=== PATIENT | male | born 1980 | race Caucasian/White ===

== ENCOUNTER → 2020-02-02 15:48 | Outpatient (REF) | payer OTHER, SELFPAY | LOC: ANHLAB 15:48 | PROVIDERS: PCP Family Medicine; Visit Provider Nurse Practitioner Family | DX: L72.0 Epidermal cyst (principal) | CPT/HCPCS: 88304 ==

== ENCOUNTER → 2021-09-05 10:54 | Outpatient (CLI) | payer OTHER, SELFPAY ==
--- NOTE | ~2021-09-05 | XR_ITS ---
EXAMINATION: XR barium swallow DATE: 09/05/2021 12:38 CDT INDICATION: Difficulty swallowing. TECHNIQUE: Thick barium contrast with gas effervescent crystals were administered orally. Fluoroscop ic images of the esophagus were obtained in various projections. The hypopharynx was also examined. T hereafter, overhead images of the thoracic esophagrus were performed. Fluroscopy time 0.5 minutesDap 5.28. 80 images. FINDINGS: The esophagus is normal in caliber, without mucosal lesions or strictures. There is a small Zenker's diverticulum. There is normal esophageal peristalsis. There is no hiatal hernia. No discre et episode of gastroesophageal reflux is seen during the course of this study. IMPRESSION: 1. Small Zenker's diverticulum. Reviewed, dictated and finalized at location B.
== END ==
PROVIDERS: PCP Family Medicine; Visit Provider Family Medicine
DX: R13.10 Dysphagia, unspecified (principal); K22.5 Diverticulum of esophagus, acquired
CPT/HCPCS: 74220

== ENCOUNTER 2022-09-03 18:22 | Observation (INO) | payer OTHER, SELFPAY ==
[2022-09-03] VITALS (10 sets, daily range): BP systolic 146–177; BP diastolic 85–91; PULSE 55–72; RESP 16–20; TEMP 37; O2SAT 93–100
--- NOTE | ~2022-09-03 | CT_ITS ---
EXAMINATION: CT abdomen pelvis w con DATE: 09/03/2022 22:37 INDICATION: RLQ pain TECHNIQUE: Computed tomography (CT) of the abdomen and pelvis was performed with 100 mL Omnipaque-350 intravenous contrast. Automated exposure control and iterative reconstruction technique were employe d. The dose-length product was 1117.65 mGy-cm. COMPARISON: None. FINDINGS: Lower thorax: Unremarkable Liver: Normal. Biliary/Gallbladder: Gallbladder is normal. No bile duct dilation. Pancreas: No mass or duct dilation. Spleen: Normal. Adrenals:No mass. Kidneys: No mass, stone, or hydronephrosis. GI tract: No small or large bowel dilation. Dilated appendix with an intact wall. Appendicolith in th e proximal appendix. Surrounding inflammatory change and fluid. No evidence of abscess or perforation . Inflammatory changes involve the adjacent terminal ileum and cecal wall. Mesentery/Peritoneum: No ascites, mass, or free air. Prominent lymph nodes in the small bowel mesente ry with surrounding fat halos and teresita mesentery. Retroperitoneum: No mass. Pelvis: Pelvic organs are within normal limits. Soft Tissues: Soft tissues and body wall unremarkable. Bones: No acute osseous finding. IMPRESSION: Acute uncomplicated appendicitis, with reactive adjacent terminal ileitis. Mesenteric panniculitis, l ikely an incidental finding and typically a self-limiting condition. Reviewed, dictated and finalized at location K. IMPRESSION: Acute uncomplicated appendicitis, with reactive adjacent terminal ileitis. Mese nteric panniculitis, likely an incidental finding and typically a self-limiting condition.
[2022-09-03 20:35] LABS: Basophils Percent Auto 0.2 % (0.2-1.2); Hematocrit 49.3 % (42.0-52.0); Hemoglobin 17.1 g/dL (14.0-18.0); Immature Granulocyte Absolute 0.16 K/mm3 (0.00-0.031); Immature Granulocyte Percent A 0.7 % (0-0.5); Lymphocytes Absolute Auto 1.72 K/mm3 (0.9-3.2); Lymphocytes Percent Auto 7.5 % (18.3-44.2); Mean Corpuscular HGB Conc 34.7 g/dl (32-36); Mean Corpuscular Hemoglobin 28.9 pg (26-34); Mean Corpuscular Volume 83.3 fl (80-100); Mean Platelet Volume 10.3 fl (7.4-10.4); Monocytes Percent Auto 4.5 % (2.6-8.5); Neutrophils Absolute Auto 19.9 K/mm3 (1.3-6.7); Neutrophils Percent Auto 87.1 % (45.5-73.1); Platelet Count Result 227 k/mm3 (150-375); Red Blood Count 5.92 M/mm3 (4.6-6.20); Red Cell Distribution Width 12.6 % (11.5-14.5); White Blood Count 22.8 K/mm3 (4.5-10.0)
[2022-09-03 20:53] LABS: Alanine Aminotransferase 28 U/L (6-50); Albumin Level 5.1 g/dL (3.5-5.1); Alkaline Phosphatase 63 U/L (38-126); Anion Gap 8 mmol/L (8-16); Aspartate Amino Transferase 23 U/L (17-59); Bilirubin,Total 0.8 mg/dL (0.2-1.3); Blood Urea Nitrogen 12 mg/dL (9-20); Calcium 9.3 mg/dL (8.4-10.2); Carbon Dioxide 32 mmol/L (22-30); Chloride 99 mmol/L (98-107); Estimated CRCL calculation 141 ml/min; Estimated Glomerular Filt Rate > 60; Glucose 135 mg/dL (65-110); Lipase 48 U/L (23-300); Potassium 4.2 mmol/L (3.4-5.0); Sodium 139 mmol/L (137-145)
[2022-09-03 22:48] LABS: Appearance Urine Clear (Clear); Bacteria Urine None Seen /hpf; Bilirubin Urine Negative (Negative); Blood Urine Negative (Negative); Color Urine Dark Yellow (Yellow); Glucose Urine UA Negative (Negative); Ketones Urine 1+ mg/dL (Negative); Leukocyte Esterase Ur Negative LEU/UL (Negative); Mucus Urine Present /lpf; Nitrate Urine Negative (Negative); Protein Urine 2+ mg/dL (Negative); RBC Urine 0-2 /hpf (0-2); Specific Grav Ur 1.025 (1.001-1.035); Squamous Epithelial Cell Urine None seen /hpf (Few); Urobilinogen Urine 0.2 mg/dL (<2.0); WBC Urine 0-5 /hpf; pH Urine 5.5 (5.0-9.0)
[2022-09-03 22:50] LABS: Add Urine Microscopic? YES
--- NOTE | 2022-09-03 22:54 | PC.NURSE ---
Pt report given to CRYSTAL Dumont.
--- NOTE | 2022-09-03 23:17 | ED.ABDPAIN ---
HPI - Abdominal Pain General Chief Complaint: Abdominal Pain <RHETT Goddard Last Filed: 09/04/22 03:39> Stated Complaint: Abdominal pain <RHETT Goddard Last Filed: 09/04/22 03:39> Time Seen by Provider: 09/03/22 23:04 <RHETT Goddard Last Filed: 09/04/22 03:39> History of Present Illness HPI narrative: 42-year-old male reports for abdominal pain x2 days. Patient reports the pain worsened significantly today. He describes the pain as periumbilical and right lower quadrant. Reports nausea and 2 episodes of vomiting today, nonbloody and nonbilious. Denies known fever, however reports body aches and chills today. Reports anorexia today. Denies urinary complaints, back pain, headache, vision changes, chest pain, shortness of breath, diarrhea, melena, hematochezia. <RHETT Goddard Last Filed: 09/04/22 03:39> Related Data Home Medications: Home Medications Medication Instructions Recorded Confirmed atorvastatin 20 mg tablet 20 mg PO DAILY 10/16/21 09/04/22 <RHETT Goddard Last Filed: 09/04/22 03:39> Allergies/Adverse Reactions: Allergies Allergy/AdvReac Type Severity Reaction Status Date / Time No Known Allergies Allergy Mild Verified 09/04/22 02:18 <RHETT Goddard Last Filed: 09/04/22 03:39> Review of Systems Review of Systems: CONSTITUTIONAL: Denies fever EYES: Denies visual changes, redness, or discharge. ENT: Denies rhinorrhea, congestion, sore throat, or otalgia. CARDIOVASCULAR: Denies chest pain, palpitations, or edema. RESPIRATORY: Denies cough or dyspnea. GASTROINTESTINAL: See HPI GENITOURINARY: Denies dysuria or hematuria. SKIN: Denies rash or itching. MUSCULOSKELETAL: Denies back pain, joint pain, or myalgia. NEUROLOGIC: Denies headache, numbness, dizziness, or weakness. PSYCHIATRIC: Denies anxiety or depression. <RHETT Goddard Last Filed: 09/04/22 03:39> PMFSH Past Medical History Medical History: Medical History History of fracture of nasal bone Hyperlipidemia <Sisi Galo PA-C - Last Filed: 09/04/22 03:39> Surgical History Surgical History: Surgical History History of nasal surgery <Sisi Galo PA-C - Last Filed: 09/04/22 03:39> Family History Family History: Family History Other No significant family history <RHETT Goddard Last Filed: 09/04/22 03:39> Social History Social History: Social History Smoking status: Former smoker Tobacco type: cigarettes Second hand tobacco smoke exposure: No Additional smoking assessment comments: age 13 - 30 ppd 1 1/2 per day Alcohol intake: current Drinks per week: 1 Substance use: never Lack of Transportation: No Lack of Food: Never True Current Housing: I Have Housing Concerned About Future Housing: No Difficulty Paying Gas/Electric Bills: No Difficulty Paying for Meds: No Currently Unemployed: No Education: High School Diploma/GED Difficulty w/ Childcare or Family Care: No Living arrangements: with family Spiritual care concerns: No <Sisi Galo PA-C - Last Filed: 09/04/22 03:39> Exam Narrative: GENERAL: Well-appearing, well-nourished, and in no acute distress. Patient resting comfortably on the bed. HEAD: Normocephalic, atraumatic. EYES: PERRLA and EOMI. ENT: Nares clear, no rhinorrhea or epistaxis. Mucous membranes moist. Oropharynx without tonsillar hypertrophy exudate or other lesions. NECK: Supple. No adenopathy or masses. CHEST: Clear to auscultation. No respiratory distress. No wheezes rales or rhonchi HEART: Regular rate and rhythm. No murmur heard. Normal peripheral pulses. ABDOMEN: Soft, nondistended, no
[2022-09-03] MEDS: SODIUM CHLORIDE 0.9% IV 1,000 ML 999 ML IV CONT (23:22)
[2022-09-03] MEDS: ONDANSETRON INJ 4 MG/2 ML VIAL IV PUSH (23:23)
[2022-09-03] MEDS: MORPHINE SULFATE (*CRX) 4 MG/ML INJ IV PUSH (23:23)
[2022-09-03] MEDS: metroNIDAZOLE 500 MG/ISO 100ML 500 MG/100 ML BAG 100 MG IVPB (23:26)
--- NOTE | 2022-09-03 23:44 | PC.NURSE ---
Per shannan Chun to start antibiotics without blood cultures.
[2022-09-04] VITALS (28 sets, daily range): BP systolic 113–162; BP diastolic 62–95; PULSE 62–92; RESP 11–18; TEMP 36.4–38.4; O2SAT 94–100; BMI 36.3
[2022-09-04] MEDS: SODIUM CHLORIDE 0.9% IV 1,000 ML 125 ML IV CONT (02:13)
[2022-09-04] MEDS: MORPHINE SULFATE (*CRX) 4 MG/ML INJ IV PUSH ×3 (02:13→10:14)
--- NOTE | 2022-09-04 02:24 | ADMGEN ---
This patient, Andre Delgado, was admitted to [facility] S[facility] Room 306-02. Patient/family oriented to hospital policies and general routines including ID bracelet, bed and alarms, visiting hours, pain management, procedures, bathroom and other care routines, personal items, smoking policy, room service/diet, and visiting hours. Information on how to activate the Rapid Response Team has been discussed. Patient/Family are encouraged to report perceived risks to care and to ask questions if they do not understand what they are told or what they should do.
[2022-09-04] MEDS: metroNIDAZOLE 500 MG/ISO 100ML 500 MG/100 ML BAG 100 MG IVPB ×2 (06:49→14:01)
--- NOTE | 2022-09-04 10:13 | PM.IMHP ---
H&P: HPI History of Present Illness Date/Time: 09/04/22 10:13 Chief Complaint: RLQ abdominal pain Narrative: This is a 42-year-old man with a history of hyperlipidemia, who presented to the ER with a 2-day history of abdominal pain. He reports eating a large meal Friday night, 3 days ago, and shortly after eating noticing some periumbilical abdominal pain. He associated this to eating too much and went to bed that night. His abdominal pain continued into Friday and was constant the entire day. It was initially mild, but started to become more severe yesterday. He began to have more localized pain in the RLQ. No alleviating factors. Movement and bending are aggravating factors. No fever or chills. He had associated nausea and two episodes of vomiting yesterday at home. Due to his persistent abdominal pain, he presented to the ER last night. Labs were significant for a WBC count of 22,800. CT scan of the abdomen and pelvis showed acute uncomplicated appendicitis with reactive adjacent terminal ileitis. Also incidentally noted was mesenteric panniculitis. Appendicolith was seen in the proximal appendix. No obvious evidence of perforation or abscess. Our service was contacted by the ED physician and he was started on IV ceftriaxone and metronidazole. He was admitted in this setting for surgical evaluation. He is seen on the medical floor and reports his pain has become more localized in the RLQ since admission. He denies any nausea this morning. No previous abdominal surgeries. No other complaints at this time. Review of Systems Review of Systems: All systems reviewed & are unremarkable except as noted in HPI and below Constitutional: Constitutional: Reports no additional constitutional complaints, Denies chills, Denies fatigue and Denies fever(s) Eyes: Eyes: Reports no additional eye complaints ENT: Reports system reviewed and no additional complaints, except as documented and Denies dizziness Cardiovascular: Cardiovascular: Reports no additional cardiovascular complaints, Denies chest pain and Denies leg edema Respiratory: Respiratory: Reports no additional respiratory complaints, Denies cough and Denies dyspnea Gastrointestinal: Gastrointestinal: Reports as per HPI, Reports no additional gastrointestinal complaints, Reports abdominal pain, Denies bloating, Denies change in bowel habits, Denies change in stool character, Denies coffee ground emesis, Denies constipation, Denies diarrhea, Reports nausea, Reports vomiting and Denies hematemesis Genitourinary: Genitourinary: Reports no additional male genitourinary complaints and Denies dysuria Musculoskeletal: Musculoskeletal: Reports no additional musculoskeletal complaints, Denies abnormal gait and Denies joint swelling Integumentary/Breasts: Skin/Breast: Reports system reviewed and no additional complaints, except as docu Neurologic: Reports system reviewed and no additional complaints, except as documented, Denies headache(s), Denies focal weakness, Denies numbness and Denies tingling Endocrine: Endocrine: Denies fatigue PMFSH Past Medical History Medical History History of fracture of nasal bone Hyperlipidemia Surgical History Surgical History History of nasal surgery Family History Family History Other No significant family history Social History Social History Smoking status: Former smoker Tobacco type: cigarettes Second hand tobacco smoke exposure: No Additional smoking assessment comments: age 13 - 30 ppd 1 1/2 per day Alcohol intake: current Drinks per week: 1 Substance use: never Lack of Transportation: No Lack of Food: Never True Current Housing: I Have Housing Concerned About Future Housing: No Difficulty Paying Gas/Electric B
--- NOTE | 2022-09-04 12:38 | PC.NURSE ---
To OR per shawna, IV #20 RT AC - SL. Report given to Carol. THAKKAR and 1400 dose Flagyl on chart. at bedside.
--- NOTE | 2022-09-04 13:12 | WPDANESEPPF ---
Anes - Initial Pre Proc Eval Procedure: Operation Date: 09/04/22 14:00 Proposed Procedures p Laparoscopic Appendectomy - Lai Lepe DO Date/Time: 09/04/22 13:12 Surgeon: Lai Lepe DO Pre Op Diagnosis: Appendicitis Patient Data Age: 42 Gender: M Height: 1.73 m Weight: 108.6 kg Last Vital Signs Temp 101.1 F H 09/04/22 12:43 Pulse 92 09/04/22 12:43 Resp 16 09/04/22 12:43 BP 147/74 H 09/04/22 12:43 Pulse Ox 98 09/04/22 12:43 O2 Del Method Room Air 09/04/22 12:43 Allergies Allergy/AdvReac Type Severity Reaction Status Date / Time No Known Allergies Allergy Mild Verified 09/04/22 02:18 Home Medications Medication Instructions Recorded Confirmed Type atorvastatin 20 mg tablet 20 mg PO DAILY 10/16/21 09/04/22 History Laboratory Tests 09/03/22 09/03/22 09/03/22 20:03 20:03 22:29 WBC 22.8 K/mm3 H K/mm3 (4.5-10.0) RBC 5.92 M/mm3 M/mm3 (4.6-6.20) Hgb 17.1 g/dL g/dL (14.0-18.0) Hct 49.3 % % (42.0-52.0) MCV 83.3 fl fl (80-100) MCH 28.9 pg pg (26-34) MCHC 34.7 g/dl g/dl (32-36) RDW 12.6 % % (11.5-14.5) Plt Count 227 k/mm3 k/mm3 (150-375) MPV 10.3 fl fl (7.4-10.4) Immature Gran % (Auto) 0.7 % H % (0-0.5) Neut % (Auto) 87.1 % H % (45.5-73.1) Lymph % (Auto) 7.5 % L % (18.3-44.2) [place] % (Auto) 4.5 % % (2.6-8.5) Eos % (Auto) 0.0 % % (0-4.4) Baso % (Auto) 0.2 % % (0.2-1.2) Lymph # (Auto) 1.72 K/mm3 K/mm3 (0.9-3.2) [place] # (Auto) 1.0 K/mm3 H K/mm3 (0.1-0.6) Eos # (Auto) 0.0 K/mm3 K/mm3 (0-0.3) Baso # (Auto) 0.0 K/mm3 K/mm3 (0.0-0.1) Abs Immat Gran (auto) 0.16 K/mm3 H K/mm3 (0.00-0.031) Absolute Neuts (auto) 19.9 K/mm3 H K/mm3 (1.3-6.7) Absolute Nucleated RBC 0.0 K/mm3 K/mm3 (0.0-0.012) Nucleated RBC % 0.0 % % (0.0-0.2) Sodium 139 mmol/L mmol/L (137-145) Potassium 4.2 mmol/L mmol/L (3.4-5.0) Chloride 99 mmol/L mmol/L (98-107) Carbon Dioxide 32 mmol/L H mmol/L (22-30) Anion Gap 8 mmol/L mmol/L (8-16) BUN 12 mg/dL mg/dL (9-20) Creatinine 0.70 mg/dL mg/dL (0.7-1.3) Estim Creat Clear Calc 141 ml/min ml/min Estimated GFR > 60 (59 - ) Glucose 135 mg/dL H mg/dL (65-110) Calcium 9.3 mg/dL mg/dL (8.4-10.2) Total Bilirubin 0.8 mg/dL mg/dL (0.2-1.3) AST 23 U/L U/L (17-59) ALT 28 U/L U/L (6-50) Alkaline Phosphatase 63 U/L U/L (38-126) Total Protein 9.0 g/dL H g/dL (6.3-8.2) Albumin 5.1 g/dL g/dL (3.5-5.1) Lipase 48 U/L U/L (23-300) Urine Color Dark yellow (Yellow) Urine Appearance Clear (Clear) Urine pH 5.5 (5.0-9.0) Ur Specific [place] 1.025 (1.001-1.035) Urine Protein 2+ mg/dL H mg/dL (Negative) Urine Glucose (UA) Negative mg/dL mg/dL (Negative) Urine Ketones 1+ mg/dL H mg/dL (Negative) Ur Blood (Man) Negative (Negative) Urine Nitrate Negative (Negative) Urine Bilirubin Negative (Negative) Urine Urobilinogen 0.2 mg/dL mg/dL (<2.0) Leukocyte Esterase Rfl Negative ANDREA/UL ANDREA/UL (Negative) Urine RBC 0-2 /hpf /hpf (0-2) Urine WBC 0-5 /hpf /hpf Ur Squamous Epith Cells None seen /hpf /hpf (Few) Urine Bacteria None seen /hpf /hpf Urine Casts 3-5 Urine Mucus Present /lpf /lpf Patient hx anesthesia problems: none Family hx anesthesia problems: none Results Review: All pre-operative results and documents have been reviewed as part of the pre-operative evaluation. PMFSH Past Me
[2022-09-04] MEDS: KETOROLAC 15 MG/ML VIAL (*BKC) IV PUSH (13:14)
[2022-09-04] MEDS: LACTATED RINGERS 1,000 ML 30 ML IV CONT (13:15)
--- NOTE | 2022-09-04 13:53 | WPDHPUPDATE1 ---
History and Physical Update Update Date/Time: 09/04/22 13:53 History and Physical has been reviewed, including an updated exam of the patient. There are NO changes in the patient's condition. Risks, benefits, and alternatives have been discussed and questions answered. Patient agrees to proceed with procedure.
[2022-09-04] MEDS: ACETAMINOPHEN 500 MG TABLET 1000 MG PO (14:00)
[2022-09-04] MEDS: ceFAZolin 2 GM/D5W 50 ML 2 GM/50 ML BAG IVPB (14:05)
[2022-09-04] MEDS: BUPIVACAINE/EPINEPHRINE 0.25% 50 ML VIAL 30 ML INFILTRATE (14:21)
--- NOTE | 2022-09-04 15:08 | W.PM.PROC2 ---
Procedure Note - Detailed Date of Procedure 09/04/22 Pre-op Diagnosis Appendicitis Post-op Diagnosis Other (Acute perforated appendicitis) Procedure Performed Laparoscopic appendectomy Surgeon Lai Lepe DO Anesthesia General and Local (0.5% bupivicaine with epinephrine) Indications This is a 42-year-old man who presented with right lower quadrant pain that started 3 days ago. He began experiencing fevers last night and this morning. He presented to the emergency department over night and was noted to have a high white blood count and CT findings suggestive of acute appendicitis. He was started on broad-spectrum IV antibiotics and was admitted for further treatment. Discussions were made with the patient about treatment options and decision was made to proceed with laparoscopic appendectomy, possible open. Findings Laparoscopic appendectomy was performed. The appendix appeared dilated and inflamed. As I dissected down towards the base of the appendix, I did identify an area of necrosis and perforation. There was some purulence fluid that was draining from this location. All of the purulence appeared to be contained between the appendix and mesoappendix. There did not appear to be any distant spread of infection or any distant abscess. The base of the appendix appeared healthy and viable. The appendix was removed and sent to the lab for pathology. The abdominal cavity was then irrigated with 1 L of sterile saline. Description of Procedure Procedure as well as risks, benefits, and alternatives were explained to the patient. The patient agreed to proceed. Written consent was obtained and placed in chart prior to procedure. The patient was brought back to surgical suite. He was placed supine on operating table. Time-out was done to confirm the patient and procedure. The patient was then intubated by the Anesthesia Department. His abdomen was prepped and draped in sterile fashion using chlorhexidine prep. A 5 mm incision was made just to the left of the patient's umbilicus and a 5 mm Optiview trocar was advanced through the abdominal layers under direct visualization. Once inside the peritoneal cavity, carbon dioxide insufflation was used to create a pneumoperitoneum. The camera was inserted and the abdomen was inspected. No immediate abnormalities were identified. The patient was then placed in slight Trendelenburg position and rotated to the left. A 5 mm incision was made in the suprapubic region in midline and a 5 mm trocar was inserted under direct visualization. A 12 mm incision was made in the left lower quadrant and a 12 mm trocar was inserted under direct visualization. The right lower quadrant was carefully inspected. The cecum was identified and then this was traced back to the appendix. The appendix was identified and grasped at the mesoappendix and lifted anteriorly. Careful blunt dissection was carried out at the base of the appendix through the mesoappendix using a [place] grasper. An Endo-JSOE 45 mm blue load stapler was then advanced across the base of the appendix and clamped and fired. A white reload was then clamped across the mesoappendix and fired. This freed up our appendix completely. It was then placed in an EndoCatch bag and removed through the left lower quadrant port. The staple lines were then inspected. Hemostasis appeared adequate and the staple lines appeared secure. The area was then irrigated with sterile saline. The pelvis was then carefully inspected and irrigated with sterile saline as well and the remainder of the abdomen was carefully inspected. The patient was then flattened out in bed. One final inspection was made around the abdominal cavity and no other abnormalities were seen. The left lower quadrant port was removed and a José Miguel-Rayshawn cone was used to approximate the fascia with an 0 Vicryl simple interrupted suture. The remaining ports were then removed under direct visualization. The
[2022-09-04] MEDS: fentaNYL CITRATE INJ (*CRX) 100 MCG/2 ML VIAL 25 MCG IV PUSH ×2 (15:33→15:35)
[2022-09-04] MEDS: PIPERACILLN/TAZ 3.375GM/NS50ML 3.375 GM/50 ML BAG IVPB (17:53)
[2022-09-04] MEDS: IBUPROFEN 600 MG TABLET PO (22:20)
[2022-09-05] MEDS: PIPERACILLN/TAZ 3.375GM/NS50ML 3.375 GM/50 ML BAG IVPB ×4 (00:02→17:50)
[2022-09-05 04:33] VITALS: BP 125/71; PULSE 75; RESP 16; TEMP 36.3; O2SAT 97
[2022-09-05] MEDS: IBUPROFEN 600 MG TABLET PO ×2 (06:28→17:49)
[2022-09-05 06:50] LABS: Hematocrit 42.6 % (42.0-52.0); Hemoglobin 14.7 g/dL (14.0-18.0); Mean Corpuscular HGB Conc 34.5 g/dl (32-36); Mean Corpuscular Hemoglobin 28.7 pg (26-34); Mean Corpuscular Volume 83.2 fl (80-100); Platelet Count Result 168 k/mm3 (150-375); Red Blood Count 5.12 M/mm3 (4.6-6.20); Red Cell Distribution Width 12.7 % (11.5-14.5); White Blood Count 23.7 K/mm3 (4.5-10.0)
[2022-09-05 07:14] LABS: Anion Gap 6 mmol/L (8-16); Blood Urea Nitrogen 19 mg/dL (9-20); Calcium 8.3 mg/dL (8.4-10.2); Carbon Dioxide 30 mmol/L (22-30); Chloride 100 mmol/L (98-107); Estimated CRCL calculation 125 ml/min; Estimated Glomerular Filt Rate > 60; Glucose 118 mg/dL (65-110); Potassium 4.1 mmol/L (3.4-5.0); Sodium 136 mmol/L (137-145)
--- NOTE | 2022-09-05 11:13 | WPDANESPN ---
Anes - Prog Note Post-Op Date/Time: 09/05/22 10:50 Cardiovascular status: normal Respiratory status: normal Airway patency: baseline Mental status: baseline Post-Op hydration status: normal Vital Signs: Last Vital Signs Temp 97.3 F L 09/05/22 04:33 Pulse 75 09/05/22 04:33 Resp 16 09/05/22 04:33 BP 125/71 09/05/22 04:33 Pulse Ox 97 09/05/22 04:33 O2 Del Method Room Air 09/04/22 20:00 O2 Flow Rate 8 09/04/22 15:45 Pain Score (VAS): 2 I/O: Intake & Output 09/04/22 09/05/22 09/05/22 23:59 07:59 15:59 Intake Total 470 100 240 Balance 470 100 240 Laboratory Tests 09/05/22 06:41 09/05/22 06:41 09/05/22 09/05/22 06:41 06:41 WBC 23.7 H RBC 5.12 Hgb 14.7 Hct 42.6 MCV 83.2 MCH 28.7 MCHC 34.5 RDW 12.7 Plt Count 168 MPV 10.0 Sodium 136 L Potassium 4.1 Chloride 100 Carbon Dioxide 30 Anion Gap 6 L BUN 19 Creatinine 0.80 Estim Creat Clear Calc 125 Estimated GFR > 60 Glucose 118 H Calcium 8.3 L Post-procedural complaints: none Patient Feedback: Patient satisfied with anesthetic care.
--- NOTE | 2022-09-05 13:00 | PM.PNGS ---
Progress Note: A&P Assessment and Plan (1) Acute perforated appendicitis: Code(s): K35.32 - Acute appendicitis with perforation, localized peritonitis, and gangrene, without abscess Status: Acute Assessment and Plan: S/p laparoscopic appendectomy yesterday and found to have a contained perforation of the appendix. Doing well this morning. Tolerating a regular diet. He has been afebrile since surgery, but his white blood cell count did go up slightly to 23,700. Will continue IV Zosyn today and plan to repeat labs tomorrow. Could possibly discharge in the next 1-2 days on oral antibiotics if leukocytosis is improving and he continues to do well. Plan I have discussed the patient's case and plan of care with Dr. Stringer. Subjective Subjective Date/Time Seen: 09/05/22 13:00 Post Op day: 1 ( Laparoscopic appendectomy) Patient reports: feels better, tolerating a regular diet, voiding w/o difficulty, flatus, no bowel movement and afebrile Interval history: patient seen this morning and doing well. He reports having some incisional soreness with movement, but the abdominal pain prior to surgery has resolved. He is tolerating a regular diet with no nausea, vomiting, or bloating. He is passing flatus but no BM. He did have a fever yesterday around noon prior to surgery, but has been afebrile since. He is up and walking in the room and tolerating this well. To note, his white blood cell count did go up slightly to 23,700. No other complaints at this time. Review of Systems Review of Systems: All systems reviewed & are unremarkable except as noted in HPI and below Exam Const: General: comfortable, no acute distress and awake Orientation/consciousness: patient oriented x3 Resp: Effort & Inspection: normal respiratory effort Auscultation: clear to auscultation bilaterally Cardio: Rate: regular rate Rhythm: regular rhythm GI: Inspection: non-distended and incision (incisions dry and intact) GI Palp: Yes Soft to palpation, Yes Tenderness to palpation present (GI) (incisional and RLQ) and No Guarding due to palpation present (GI) Auscultation: Hypoactive bowel sounds present Neuro: General: moves all extremities and no focal motor deficits Extrem: General: no calf tenderness and no edema Psych: Mental Status: mental status grossly normal Insight: Good insight present (Psych) Objective Data Vital Signs Vital Signs: Vital Signs - 24 hr 09/04/22 15:03 09/04/22 15:15 09/04/22 15:30 Temperature 99.5 F Pulse Rate 66 72 84 Respiratory Rate 11 L 14 16 Blood Pressure 122/69 120/64 136/78 Pulse Oximetry 100 100 100 Oxygen Delivery Simple Face Mask Simple Face Mask Simple Face Mask Oxygen Flow Rate 8 8 8 09/04/22 15:45 09/04/22 16:00 09/04/22 16:15 Temperature Pulse Rate 62 80 74 Respiratory Rate 14 14 18 Blood Pressure 119/62 113/67 120/67 Pulse Oximetry 100 95 97 Oxygen Delivery Simple Face Mask Room Air Room Air Oxygen Flow Rate 8 09/04/22 16:30 09/04/22 16:45 09/04/22 17:00 Temperature Pulse Rate 79 70 74 Respiratory Rate 16 14 12 Blood Pressure 114/68 118/67 120/69 Pulse Oximetry 95 94 94 Oxygen Delivery Room Air Room Air Room Air Oxygen Flow Rate 09/04/22 17:19 09/04/22 17:34 09/04/22 18:04 Temperature 97.7 F 97.9 F 97.5 F L Pulse Rate 82 85 80 Respiratory Rate 16 16 18 Blood Pressure 119/78 122/73 120/75 Pulse Oximetry 97 96 97 Oxygen Delivery Oxygen Flow Rate 09/04/22 19:04 09/04/22 23:12 09/04/22 20:00 Temperature 98 F 98.4 F Pulse Rate 78 84 84 Respiratory Rate 14 16 16 Blood Pressure 114/74 140/70 Pulse Oximetry 97 100 100 Oxygen Delivery Room Air Oxygen Flow Rate 09/05/22 04:33 Temperature 97.3 F L Pulse Rate 75 Respiratory Rate 16 Blood Pressure 125/71 Pulse Oximetry 97 Oxygen Delivery Oxygen Flow Rate Intake/Output Intake/Output: Intake & Output 09/02/22 09/03/22 09/04/22 09/05/22 23:59 23:59 23:59 23:59 In
[2022-09-05 14:00] VITALS: BP 130/85; PULSE 75; RESP 16; TEMP 36.8; O2SAT 97
[2022-09-05 19:04] VITALS: BP 113/67; PULSE 82; RESP 14; TEMP 37; O2SAT 96
[2022-09-06] MEDS: PIPERACILLN/TAZ 3.375GM/NS50ML 3.375 GM/50 ML BAG IVPB ×3 (00:26→11:42)
[2022-09-06] MEDS: IBUPROFEN 600 MG TABLET PO (01:02)
[2022-09-06 06:00] VITALS: BP 115/72; PULSE 66; RESP 14; TEMP 36.6; O2SAT 97
[2022-09-06 08:00] VITALS: PULSE 83; RESP 18; O2SAT 94
[2022-09-06 09:05] LABS: Hematocrit 40.7 % (42.0-52.0); Hemoglobin 13.5 g/dL (14.0-18.0); Mean Corpuscular HGB Conc 33.2 g/dl (32-36); Mean Corpuscular Hemoglobin 29.1 pg (26-34); Mean Corpuscular Volume 87.7 fl (80-100); Mean Platelet Volume 10.4 fl (7.4-10.4); Platelet Count Result 175 k/mm3 (150-375); Red Blood Count 4.64 M/mm3 (4.6-6.20); Red Cell Distribution Width 13.2 % (11.5-14.5)
[2022-09-06 09:26] LABS: Anion Gap 4 mmol/L (8-16); Blood Urea Nitrogen 20 mg/dL (9-20); Calcium 8.2 mg/dL (8.4-10.2); Carbon Dioxide 30 mmol/L (22-30); Chloride 102 mmol/L (98-107); Estimated CRCL calculation 125 ml/min; Estimated Glomerular Filt Rate > 60; Glucose 85 mg/dL (65-110); Potassium 3.8 mmol/L (3.4-5.0); Sodium 136 mmol/L (137-145)
--- NOTE | 2022-09-06 12:25 | PM.DS ---
DS: Admitting Diagnosis Discharge Date 09/06/2022 Admitting Diagnosis Acute appendicitis DS: Discharge Diagnosis Discharge Diagnosis (1) Acute perforated appendicitis: Code(s): K35.32 - Acute appendicitis with perforation, localized peritonitis, and gangrene, without abscess Status: Acute DS: Summary Hospital Course Hospital Course: Patient came to the emergency room on 09/04/2022 with a 2 day history of mid abdominal pain that moved to the right lower quadrant. He was noted to have right lower quadrant tenderness and and white blood cell count that was over 22,000. CT scan of the abdomen and pelvis showed acute appendicitis. He was started on IV antibiotics. He was taken to surgery on the day of admission and laparoscopic appendectomy was performed. Near the base of the appendix he did have a perforation with some purulent fluid draining. This was contained locally between the appendiceal mesentery and the cecum. It was suctioned away in the appendectomy was performed otherwise without incident. Patient was continued on IV Zosyn postoperatively. The still had an elevated white count on postop day 1. His pain was much better however. He continued to improve and on postop day 2. He was ambulating in the halls. He had no fever. His white count had decreased to 16,000. He was taking only ibuprofen for pain. He is discharged now on oral antibiotics in much improved condition. Status at Discharge Functional status at discharge: independent ambulation Overall status at discharge: patient is not back to baseline Time Spent with Patient Time attestation: Total time spent providing and/or coordinating discharge services: Time spent: Less than 30 minutes Exam Const: General: comfortable and no acute distress; No confusion Orientation/consciousness: patient oriented x3 and No confusion GI: Inspection: incision (Both that he incisions healing well) and scaphoid GI Palp: Yes Soft to palpation, Yes Tenderness to palpation present (GI) (Mild, appropriate tenderness), No Guarding due to palpation present (GI) and No Rebound tenderness present Auscultation: normal bowel sounds Neuro: General: patient oriented x3, no focal motor deficits and No confusion Extrem: General: no calf tenderness and no edema Psych: Affect: normal affect Insight: Good insight present (Psych) Judgement: Good judgement present (Psych) DS: Data Data Completed and Pending Completed studies during hospitalization: Pending at discharge 09/04/22 14:37 Surgical [PTH] Routine Labs on day of discharge: Labs from last 24 hours 09/06/22 09/06/22 08:42 08:42 WBC 16.0 H RBC 4.64 Hgb 13.5 L Hct 40.7 L MCV 87.7 D MCH 29.1 MCHC 33.2 RDW 13.2 Plt Count 175 MPV 10.4 Sodium 136 L Potassium 3.8 Chloride 102 Carbon Dioxide 30 Anion Gap 4 L BUN 20 Creatinine 0.80 Estim Creat Clear Calc 125 Estimated GFR > 60 Glucose 85 Calcium 8.2 L Discharge Plan Discharge Attending physician on discharge: Lai Lepe Consulting providers: Sisi Galo Discharging Clinician: Johnnie Stringer Anticipated Discharge Date/Time: 09/06/22 12:29 Patient Disposition: Home, Self-Care Activity: may shower, no straining and as tolerated Diet: as tolerated and regular Wound Care Instructions: incision open to air Discharge Instructions: 1. May shower the day after surgery over incisions. 2. Call office for: -Wound increasingly painful or bleeding -Vomiting -Fever of greater than 101 degrees 3. Expect some blood on dressing and old blood on skin. 4. If no bowel movement for three days, take 1 oz. (30 ml) Milk of Magnesia, if no results, take Fleets enema. 5. No heavy lifting > 15-20 pounds for 2 weeks. 6. No driving for 2 days or while taking narcotic pain medications. 7. Up walking 10-30 minutes three times per day.
== END 2022-09-06 13:10 | disposition home or self-care (01) ==
LOC: ANHED 09-04 00:02 → ANH3MEDSUR 09-04 01:48
PROVIDERS: Emergency Medicine; Admitting Provider Surgery; Emergency Provider Physician Assistant; PCP Family Medicine; Visit Provider Surgery
PROC: 0DTJ4ZZ Resection of Appendix, Percutaneous Endoscopic Approach (ICD-10-PCS; CPT 44970; principal; 2022-09-04 14:00)
DX: K35.32 Acute appendicitis with perforation, localized peritonitis, and gangrene, without abscess (principal); K50.00 Crohn's disease of small intestine without complications; D72.829 Elevated white blood cell count, unspecified; R63.0 Anorexia; E66.9 Obesity, unspecified; Z68.36 Body mass index [BMI] 36.0-36.9, adult; E78.5 Hyperlipidemia, unspecified; F10.90 Alcohol use, unspecified, uncomplicated; Z87.891 Personal history of nicotine dependence; Z79.899 Other long term (current) drug therapy
CPT/HCPCS: 44970; 36415; 74177; 80048; 80053; 81001; 83690; 85025; 85027; 88304; 96365; 96368; 96375; 96376; 99285; A9270; G0378; J0330; J0690; J0696; J1100; J1885; J2250; J2270; J2405; J2543; J2704; J3010; J7030; J7120; Q9967